=== PATIENT | male | born 1980 | race Caucasian/White ===

== ENCOUNTER 2017-11-08 10:34 | Emergency (ER) | payer OTHER, SELFPAY ==
[2017-11-08 10:35] VITALS: BP 152/87; PULSE 82; RESP 18; TEMP 36.4; O2SAT 98; BMI 25.8
--- NOTE | 2017-11-08 10:58 | CT_ITS ---
STUDY: CT BRAIN WITHOUT CONTRAST REASON FOR EXAM: Male, 37 years old. Left arm numbness and posterior left leg numbness. RADIATION DOSAGE (If Supplied By Facility): CTDIvol = ( 44.99 ) mGy, DLP = ( 779.24 ) mGycm TECHNIQUE: Transaxial CT imaging of the brain was performed without administration of intravenous contrast material. Individualized dose optimization techniques were used for this CT. COMPARISON: None. FINDINGS: Normal soft tissue structures. Normal calvarium. Normal size ventricles and extra-axial spaces for the patient's age. Normal white matter tracts of the cerebral hemispheres. Normal basal ganglia and thalami. Normal brainstem. Normal cerebellum. There is no intracranial hemorrhage. There are no findings of an acute ischemic infarction. Normal visualized paranasal sinuses. CT/Brain/Head without Contrast IMPRESSION: Normal unenhanced CT scan of the brain. Electronically Signed: Derek Orozco MD at 11:51 EST Tel [phone], Service support ,
--- NOTE | 2017-11-08 11:02 | ED.DCSUM_ITS ---
- ER Visit Summary Date of Service: 11/08/17 Chief Complaint: Intermittent left arm and leg tingling and numbness. History of Present Illness: The patient is a 37 M no past medical or surgical history. Patient states on Sunday he woke up in his left arm was numb and he felt like it was not working properly. He felt like he slept on it in an awkward position. He said it occurred after he was working out he had tingling in his forearm. Then later he developed intermittent left leg tingling. He denies any trouble walking. He denies any current trouble using his arms and legs. He denies any headache or head trauma. He has never had anything like this before. He denies any visual change or change in his speech. No trouble swallowing. He denies any problems with his balance. Physical Examination: Very well-appearing young male. Vital signs are stable afebrile. HEENT exam is normal. Pupils round reactive light. No facial droop. Tongue midline. Normal speech. Neck nontender no lymphadenopathy. Lungs clear to auscultation bilaterally. Heart regular rhythm no murmur. Rate in the 80s. Abdomen soft nontender. He is moving all 4 extremities. They are neurovascularly intact. 5 of 5 teaseler strength bilaterally. Dorsi plantar flexion intact. He is able to lift either leg off the bed. Fingertip to nose and [id number] are completely within normal limits. He has normal touch sensation of both arms and legs. No cauda equina no saddle anesthesia. He can easily get up from bed walk across the room. He has no trouble balance. He is a negative Romberg. He is able to walk a straight line. His neurologic exam is completely normal he is an NIH is 0. Test Results: CT scan of the brain without any contrast she is no acute abnormality read as normal by the radiologist and reviewed by me. Emergency Department Course and Treatment: Repeat exam at 1202 the patient is doing well and his neurologic exam remains normal. Treatment Plan: Discharged home to follow-up with his primary care physician Dr. Quiroga. Disposition: discharge Impression: Transient left arm and leg subjective tingling of uncertain etiology This note was generated with [employer] software. It may contain incorrect words, spelling, and punctuation that were not noted in review of the chart prior to signing ED Disposition - Plan for ED Patient: Chief Complaint: Numb/Ting Referrals: Leon Frost DO [COURTESY STAFF PHYSICIAN] -
--- NOTE | 2017-11-08 12:02 | ED.DEP ---
ED Disposition - Plan for ED Patient: Disposition: Home or Assisted Living Chief Complaint: Numb/Ting Instructions: ED Paraesthesias Referrals: Leon Frost DO [COURTESY STAFF PHYSICIAN] - 1 Week if not improving Additional Instructions: Her CAT scan today was completely normal. Call and follow-up your primary care physician. Return to the ER feeling worse such as weakness of your left arm or leg, visual changes, trouble speaking or walking.
[2017-11-08 12:16] VITALS: BP 133/84; PULSE 84; RESP 17
== END 2017-11-08 12:17 | disposition home or self-care (01) ==
PROVIDERS: Emergency Provider Emergency Medicine; Family Provider Family Medicine; PCP Family Medicine
DX: R20.2 Paresthesia of skin (principal); K21.9 Gastro-esophageal reflux disease without esophagitis
CPT/HCPCS: 70450; 99282

== ENCOUNTER → 2020-07-02 15:51 | Outpatient (CLI) | payer OTHER, SELFPAY ==
[2020-07-06 07:44] LABS: Apple 0.16 kU/L (Class 0/I); Beef <0.10 kU/L (Class 0); Carrot 0.19 kU/L (Class 0/I); Chicken <0.10 kU/L (Class 0); Clam 0.16 kU/L (Class 0/I); Codfish <0.10 kU/L (Class 0); Corn 0.19 kU/L (Class 0/I); Egg, White <0.10 kU/L (Class 0); Egg, Whole <0.10 kU/L (Class 0); Egg, Yolk <0.10 kU/L (Class 0); Garlic 0.21 kU/L (Class 0/I); Gluten 0.16 kU/L (Class 0/I); Milk (Cow) <0.10 kU/L (Class 0); Onion 0.21 kU/L (Class 0/I); Peanut 0.21 kU/L (Class 0/I); Pork <0.10 kU/L (Class 0); Potato, White 0.18 kU/L (Class 0/I); Rice 0.21 kU/L (Class 0/I); SESAME SEED 0.22 kU/L (Class 0/I); Shrimp <0.10 kU/L (Class 0); Soybean 0.16 kU/L (Class 0/I); Tuna <0.10 kU/L (Class 0); Walnut, (Food) 0.19 kU/L (Class 0/I); Wheat 0.19 kU/L (Class 0/I)
[2020-07-06 08:06] LABS: Banana 0.21 kU/L (Class 0/I)
[2020-07-07 16:17] LABS: Milk (Cow) <0.10
== END ==
PROVIDERS: PCP Family Medicine; Referring Provider Otolaryngology Otolaryngology/Facial Plastic Surgery; Visit Provider Otolaryngology Otolaryngology/Facial Plastic Surgery
DX: L50.0 Allergic urticaria (principal)
CPT/HCPCS: 36415; 86003